=== PATIENT | female | born 1995 | race Two or more races ===

== ENCOUNTER 2020-04-24 18:29 | Emergency (ER) | payer OTHER ==
[~2020-04-24] VITALS: Ht 167.6 cm; Wt 59.0 kg
[~2020-04-24 18:29] MED LIST: IBUPROFEN800 MG ORAL
[2020-04-24 18:51] VITALS: BP 116/91
--- NOTE | 2020-04-24 18:56 | NUR ---
pt states nail fungal infection for approximately 1-1.5 months. pt denies fever/cough/chills. pt states sensation intact in all fingers, denies color change in fingers. pt able to move all extremities. pt denies couh/fever/sob/nausea/vomiting/diarrhea. pt denies pmh/psh. VSS. will continue to monitor.
[2020-04-24] MEDS ORDERED: TERBINAFINE15 GM TP (18:59)
--- NOTE | 2020-04-24 19:03 | Emergency Room Report ---
History of Present Illness General Chief Complaint: Skin Rash/Abscess Source: Patient Present Illness HPI Disclaimer: Please note that this report is being documented using [employer] technology. This can lead to erroneous entry secondary to incorrect interpretation by the dictating instrument. HPI: 34-year-old otherwise healthy female presents for evaluation of possible fungal nail infection. The patient states she was told by her manicurist that she has a nail infection likely a fungus, and needs medication. She came requesting a prescription for an antifungal. Denies trauma to the hands. She typically wears prosthetic nails but these were removed. Denies any swelling or redness. Denies drainage or bleeding. Does not chew or ripped her fingernails. Otherwise no pain or discomfort at this time. No other complaints. PMH: Reviewed PSH: Reviewed Allergies: Reviewed Social Hx: Reviewed Allergies: Coded Allergies: No Known Allergies (Unverified , 04/24/20) COVID-19 Screening Contact w/high risk pt: No Experienced COVID-19 symptoms?: No COVID-19 Testing performed [employer]: No Patient History Last Menstrual Period: 04/15/20 Now: No Nursing Documentation-PMH Past Medical History: No Stated History Review of Systems All Other Systems: negative except mentioned in HPI Physical Exam Vital Signs Date Time Temp Pulse Resp B/P (MAP) Pulse Ox O2 Delivery O2 Flow Rate FiO2 04/24/20 18:51 98.4 78 18 116/91 (99) 100 Room Air General: Awake and alert, no acute distress HEENT: NC/AT. EOMI. Resp: Normal work of breathing Skin: Intact. No abrasions, laceration or rash over the exposed skin MSK: Normal tone and bulk. Moving all extremities. No obvious deformity. Firm yellow discoloration noted to the index and middle finger on the left hand and on the right pinky finger. Able to remove some material from underneath the left pinky. No paronychia, no cellulitis. Neuro: Awake and alert. Mentating appropriately Medical Decision Making Diagnostic Impression: Primary Impression: Onychomycosis ER Course 24-year-old female presents concerned over possible fungal nail infection. U nclear what the patient's yellow discoloration on the fingernails is at this time. No obvious paronychia, cellulitis or other signs of infection. May be onychomycosis and will start on terbinafine cream. Will follow up with her PMD as needed. Instructed to return new or worsening symptoms. Last Vital Signs Date Time Temp Pulse Resp B/P (MAP) Pulse Ox O2 Delivery O2 Flow Rate FiO2 04/24/20 18:51 98.4 78 18 116/91 (99) 100 Room Air Disposition: HOME, SELF-CARE Condition: Stable Scripts Terbinafine Hcl (TERBINAFINE) 15 Gm Cream..g. 15 GM TP DAILY for 42 Days, GM Prov: Junior Saleh MD 04/24/20 Referrals: [facility] Additional Instructions: Please follow-up with your primary care doctor in the next 1 to 3 days to discuss this emergency department visit and for reevaluation. If you have any new or worsening symptoms please return to the emergency department for reevaluation. Please note that this report is being documented using [employer] technology. This can lead to erroneous entry secondary to incorrect interpretation by the dictating instrument. Junior Saleh MD Apr 24, 2020 19:03
--- NOTE | 2020-04-24 19:04 | NUR ---
pt has fungal infection on R pinkie finger,L hand pointer and middle finger.
--- NOTE | 2020-04-24 19:05 | NUR ---
ED Nurse Note: Pt cleared by health care Provider for discharge. DC instructions/prescription was given and explained to pt and verbalized understanding of teachings. All medical deviecs such as ID band removed. Pt is AAO x4, ambulatory and left with all personal belongings.
== END 2020-04-24 19:03 | disposition home or self-care (01) ==
LOC: EMR 18:56
DX: B35.1 Tinea unguium (principal)
CPT/HCPCS: 99282